=== PATIENT | male | born 1990 | race Caucasian/White ===

== ENCOUNTER 2017-09-29 12:08 | Emergency (ER) | payer OTHER ==
[~2017-09-29] VITALS: Ht 177.8 cm; Wt 82.4 kg
[2017-09-29 12:08] VITALS: BP 140/88
--- NOTE | 2017-09-29 12:18 | PHYS DOC ---
Adult General Chief Complaint Chief Complaint: BACK PAIN OR INJURY [facility] HPI Patient is a 27-year-old male who is presenting with low back pain started after he did lift with bad form 1 hour prior to arrival described as severe worse with bending over he says it is a 13 out of 10 when he bends over. Slowly worsening with time has not tried anything for relief Sharp severe Review of Systems Review of Systems Constitutional: Denies fever or chills [] Cardiovascular: No additional information not addressed in HPI [] GI: Denies abdominal pain, nausea, vomiting, bloody stools or diarrhea [] Integument: Denies rash or skin lesions [] Neurologic: Denies headache, focal weakness or sensory changes [] Negative for bowel bladder incontinence negative for numbness tingling or weakness of the legs negative for radicular type pain Endocrine: Denies polyuria or polydipsia [] All other systems were reviewed and found to be within normal limits, except as documented in this note. Physical Exam Physical Exam Constitutional: Well developed, well nourished, no acute distress, non-toxic appearance. [] HENT: Normocephalic, atraumatic, bilateral external ears normal, oropharynx moist, no oral exudates, nose normal. [] Eyes: PERRLA, Neck: Normal range of motion, no tenderness, supple, no stridor. [] NORMAL RESP EFFORT NO INCREASED WORK OF BREATHING. Abdomen: Bsoft, no tenderness, no masses, no pulsatile masses. [] Skin: Warm, dry, no erythema, no rash. [] Back: PARASPINOUS TTP NOTED on the left Extremities: No tenderness, no cyanosis, no clubbing, ROM intact, no edema. [] Neurologic: Alert and oriented X 3, normal motor function, normal sensory function, no focal deficits noted. [] Psychologic: Affect normal, judgement normal, mood normal. [] EKG EKG [] Radiology/Procedures Radiology/Procedures [] Course & Med Decision Making Course & Med Decision Making Pertinent Labs and Imaging studies reviewed. (See chart for details) []Low back pain after weightlifting no focal midline tenderness no bowel or bladder incontinence no numbness or weakness of the lower extremities I suspect a bad muscle strain. Differential diagnosis includes herniated disc there are no signs of cauda equina prescription for diclofenac and Flexeril to be used sparingly were given. Return precautions were discussed Toradol was given in the emergency room. Dragon Disclaimer Dragon Disclaimer This electronic medical record was generated, in whole or in part, using a voice recognition dictation system. Departure Departure: Impression: Primary Impression: Low back pain Disposition: HOME, SELF-CARE Condition: STABLE Referrals: PCP,NO (PCP) Scripts Cyclobenzaprine Hcl (CYCLOBENZAPRINE HCL) 5 Mg Tablet 1 TAB PO QHS PRN for MUSCLE SPASMS, #10 TAB Prov: MARI MACEDO MD 09/29/17 Diclofenac Sodium (DICLOFENAC SODIUM) 50 Mg Tablet. 1 TAB PO BID PRN for PAIN, #30 TAB 1 Refill Prov: MARI MACEDO MD 09/29/17 MARI MACEDO MD Sep 29, 2017 12:18
[2017-09-29] MEDS ORDERED: DICL50TA4 PO (12:26)
[2017-09-29] MEDS ORDERED: CYCL5TAB PO (12:26)
[2017-09-29] MEDS ORDERED: KETOROLAC 60 MG/2 ML VIAL. IM ONE (12:30)
[2017-09-29] MEDS ORDERED: KETOROLAC 30 MG/ML VIAL. ONE ×2 (13:03→13:06)
[2017-09-29] MEDS ORDERED: KETOROLAC 30 MG/ML VIAL. IM ONE (13:30)
== END 2017-09-29 13:11 | disposition home or self-care (01) ==
LOC: ER 12:08
DX: M54.5 Low back pain (principal); X50.9XXA Other and unspecified overexertion or strenuous movements or postures, initial encounter; Y93.89 Activity, other specified; Y99.8 Other external cause status; Y92.89 Other specified places as the place of occurrence of the external cause
CPT/HCPCS: 96372; 99283; J1885